=== PATIENT | male | born 1935 | race Caucasian/White ===

== ENCOUNTER → 2017-01-13 | Outpatient (REF) ==
[2017-01-13 09:49] LABS: BASO # 0.1 (0.0-0.2); BASO % 0.9 % (0.0-2.0); EOS # 0.3 (0.0-0.7); EOS % 3.8 % (0-4.0); GRAN % 61.6 % (42.2-75.2); HEMATOCRIT 37.1 % (42.0-52.0); HEMOGLOBIN 12.3 g/dl (13.5-18.0); LYMPH # 1.7 (1.2-3.4); LYMPH % 25.9 % (20.0-51.0); MEAN CELL VOLUME 91 fl (80.0-100.0); MEAN CORPUSCULAR HEMOGLOBIN 30 pg (27.0-31.0); MEAN CORPUSCULAR HGB CONC 33 g/dl (33.0-37.0); MEAN PLATELET VOLUME 12.5 fl (7.4-10.4); MONO # 0.5 (0.1-0.6); MONO % 7.5 % (1.7-9.3); PLATELET COUNT 172 K/mm3 (130-400); RED BLOOD COUNT 4.07 M/mm3 (4.20-5.60); REDCELL DISTRIBUTION WIDTH-CV 13.1 % (11.5-14.5); WHITE BLOOD COUNT 6.5 K/mm3 (4.8-10.8)
[2017-01-13 10:23] LABS: ADJUSTED CALCIUM 9.7 mg/dL (8.4-10.2); ALBUMIN 3.9 gm/dL (3.5-5.0); BILIRUBIN,TOTAL 0.6 mg/dL (0.0-1.0); CALCIUM 9.6 mg/dL (8.4-10.2); CREATININE, serum 0.85 mg/dL (0.66-1.25); POTASSIUM 4.5 mmol/L (3.4-5.0); TOTAL PROTEIN 6.6 gm/dL (6.4-8.2)
== END ==
LOC: ZLAB.STJ 09:21
PROVIDERS: Internal Medicine
DX: Z02.89 Encounter for other administrative examinations (principal)

== ENCOUNTER 2018-12-18 16:43 | Inpatient (IN) | payer MEDICARE, BC ==
[~2018-12-18] VITALS: Ht 152.4 cm; Wt 42.5 kg
[2018-12-18 17:23] LABS: BASO # 0.1 (0.0-0.2); BASO % 0.7 % (0.0-2.0); EOS # 0.1 (0.0-0.7); EOS % 1.4 % (0-4.0); GRAN # 6.9 (1.4-6.5); GRAN % 79.7 % (42.2-75.2); HEMATOCRIT 38.3 % (37.0-47.0); HEMOGLOBIN 12.8 g/dl (12.5-16.0); LYMPH # 0.9 (1.2-3.4); MEAN CELL VOLUME 87 fl (80.0-100.0); MEAN CORPUSCULAR HEMOGLOBIN 29 pg (27.0-31.0); MEAN CORPUSCULAR HGB CONC 33 g/dl (33.0-37.0); MEAN PLATELET VOLUME 11.9 fl (7.4-10.4); MONO # 0.7 (0.1-0.6); MONO % 7.9 % (1.7-9.3); PLATELET COUNT 259 K/mm3 (130-400); RED BLOOD COUNT 4.42 M/mm3 (4.10-5.30); REDCELL DISTRIBUTION WIDTH-CV 12.7 % (11.5-14.5)
[2018-12-18 17:24] LABS: COLLECTION METHOD CATHETER
[2018-12-18 17:30] LABS: MUCOUS Present /lpf; PH 5 (5-8); SQUAMOUS EPITHELIAL 0-2 /hpf; URINE APPEARANCE Hazy; URINE BACTERIA None Seen /hpf; URINE BILIRUBIN Negative (NEGATIVE); URINE BLOOD 1+ (NEGATIVE); URINE COLOR Yellow; URINE GLUCOSE Negative (NEGATIVE); URINE KETONE 2+ (NEGATIVE); URINE LEUKOCYTE ESTERASE Negative (NEGATIVE); URINE NITRATE Negative (NEGATIVE); URINE PROTEIN(semi-quant) Negative (NEGATIVE); URINE RBC 0-2 /hpf; URINE UROBILINOGEN Negative (NEGATIVE)
[2018-12-18 17:44] LABS: ALANINE AMINOTRANSFERASE 8 U/L (9-52); ALBUMIN 4.2 gm/dL (3.5-5.0); ALKALINE PHOSPHATASE 90 U/L (50-136); ANION GAP 13 mmol/L (7-16); AST,SGOT 26 U/L (15-37); BILIRUBIN,TOTAL 0.7 mg/dL (0.0-1.0); BLOOD UREA NITROGEN 14 mg/dL (7-17); C-REACTIVE PROTEIN 2.4 mg/dL (0.0-0.9); CALCIUM 9.7 mg/dL (8.4-10.2); CARBON DIOXIDE 26 mmol/L (22-30); CHLORIDE 96 mmol/L (98-107); CREATINE KINASE 33 U/L (30-135); CREATININE, serum 0.76 (0.52-1.25); GLUCOSE 84 mg/dL (74-106); LIPASE 104 U/L (23-300); POTASSIUM 3.9 mmol/L (3.4-5.0); SODIUM 135 mmol/L (137-145)
[2018-12-18 17:49] LABS: ERYTHROCYTE SEDIMENTATION RATE 46 mm/hr (0-30)
[2018-12-18 18:14] LABS: TROPONIN-I < 0.012 ng/mL (0.000-0.035)
[2018-12-18] MEDS ORDERED: METHAVER 109 M1 EACH PO (20:31)
[2018-12-18] MEDS ORDERED: ARICEPT10 MG PO (20:32)
[2018-12-18] MEDS ORDERED: LEXAPRO20 MG PO (20:32)
[2018-12-18] MEDS ORDERED: CALCIUM 600MG+D1 TAB PO (20:32)
[2018-12-18] MEDS ORDERED: COZAAR 25MG25 MG/TAB PO (20:33)
[2018-12-18] MEDS ORDERED: GLUCOSAMIN 500 (20:33)
[2018-12-18] MEDS ORDERED: TOPROL XL 50MG50 MG PO (20:34)
[2018-12-18] MEDS ORDERED: MACROBID 1100 MG/CAP PO (20:36)
[2018-12-18] MEDS ORDERED: EVISTA 60MG60 MG/TAB PO (20:37)
[2018-12-18 20:56] VITALS: BP 165/82; PULSE 74; TEMP 99.4
--- NOTE | 2018-12-18 21:30 | NUR ---
Admitted to medical floor from ER with DX; weakness, uterine mass, HX alzheimers, family is here- talking with Vandana BARRON - IV fluids of NS at 125cc/hr, incontinent of urine- changed. Very pleasant, oriented to person, place. Bed alarm on-
[2018-12-18] MEDS ORDERED: LOPRESSOR 550 MG/TAB PO (22:42)
[2018-12-18] MEDS ORDERED: ANTIVERT 25MG25 MG PO (22:43)
[2018-12-19] VITALS (8 sets, daily range): BP systolic 133–179; BP diastolic 54–82; PULSE 79–98; TEMP 97.4–98.9
--- NOTE | 2018-12-19 03:20 | NUR ---
Awake- anxious, states she feels like she is dying- could not explain why-- VSS, states she is having left leg pain, Vandana BARRON did see pt- will give her some dilaudid for pain control.
[2018-12-19 06:14] LABS: BASO # 0.1 (0.0-0.2); BASO % 0.8 % (0.0-2.0); EOS # 0.1 (0.0-0.7); EOS % 0.8 % (0-4.0); GRAN # 7.6 (1.4-6.5); GRAN % 83.2 % (42.2-75.2); HEMATOCRIT 34.6 % (37.0-47.0); HEMOGLOBIN 11.4 g/dl (12.5-16.0); LYMPH # 0.8 (1.2-3.4); LYMPH % 8.5 % (20.0-51.0); MEAN CELL VOLUME 89 fl (80.0-100.0); MEAN CORPUSCULAR HEMOGLOBIN 29 pg (27.0-31.0); MEAN CORPUSCULAR HGB CONC 33 g/dl (33.0-37.0); MEAN PLATELET VOLUME 11.9 fl (7.4-10.4); MONO # 0.6 (0.1-0.6); MONO % 6.5 % (1.7-9.3); PLATELET COUNT 237 K/mm3 (130-400); RED BLOOD COUNT 3.91 M/mm3 (4.10-5.30); REDCELL DISTRIBUTION WIDTH-CV 12.8 % (11.5-14.5)
[2018-12-19 06:24] LABS: CREATININE, serum 0.74 (0.52-1.25); POTASSIUM 3.9 mmol/L (3.4-5.0)
--- NOTE | 2018-12-19 07:00 | NUR ---
Did sleep well after Dilaudid given- states fells better this morning.
--- NOTE | 2018-12-19 11:00 | NUR ---
PT HAD C/O N/V THIS AM. RECIEVED PRN ZOFRAN, PT STATED SHE DID VOMIT MEDS UP FROM EARLIER. PT HAS WENT DOWN TO ABD MRI THIS MORNING. C/O BAD HEADACHE, UNABLE TO TAKE PO MEDS AT THIS TIME, ADMINISTERED IV DILADID X2 WITHOUT RELIEF.
--- NOTE | 2018-12-19 13:30 | NUR ---
ADMINISTERED PHENAGREN AND MORPHINE. IV FLUIDS CHANGED TO D51/2NS AT THIS TIME. IV APPREZOLINE ADMINSTERED.
--- NOTE | 2018-12-19 16:00 | NUR ---
PT VOICES THAT SHE IS FEELING SO MUCH BETTER THEN SHE FELT EALIER THAT PHENAGREN AND MORPHINE DID THE TRICK. PT ATTEMPTING SOME JELLO. INFORMED HER THAT IF SHE BECAME NAUSEATED AFTERWARDS TO LET ME KNOW. NO COMPLAINTS AFTERWARDS. PT SON AT BEDSIDE, WAITING IN ROOM IN CASE THE OBGYN RETURNS THIS EVENING.
--- NOTE | 2018-12-19 16:16 | NUR ---
SW met with patient and son, Navid, to discuss discharge planning. Patient lives at home with Navid and his . Patient's PCP is Mimi Van APRN [facility] Te and son deny difficulty obtaining medications. Patient normally uses a cane for ambulation but has recently needed her four wheeled walker. Patient will be evaluated by PT and OT. Patient reports she has recently started getting outpatient PT at [facility] in [place]. Patient does not have any home health services. Te's DPOA-HC is Navid and her daughter. SW requested a copy for the chart. SW will continue to follow and assist with discharge needs.
--- NOTE | 2018-12-19 18:30 | NUR ---
PT SON LEFT FACILITY AT THIS TIME. LEFT THIS NURSE HIS PHONE NUMBER TO PASS ON IN CASE ANYTHING HAPPENS OR IF OBGYN COMES IN TO LET HIM KNOW. SON STATED HE MIGHT BE IN LATER THIS EVENING WITH HIS SISTER WHO IS FLYING IN. STATEDT THAT HIS MOTHER IS SLEEPING LIKE A BABY AT THIS TIME. PT DID TOLERATED JELLO THIS AFTERNOON WITH N/V.
--- NOTE | 2018-12-19 22:00 | NUR ---
Resting in bed. Assessment complete. Lungs clear. Heart sounds normal. Bowels active x4. Pulses strong throughout. No edema noted. Incontinent of urine. Cares provided. Denies pain at this time. Call light in reach. Bed alarm in place. Patient alert and orientated at this time.
--- NOTE | 2018-12-19 23:46 | NUR ---
Rating headache/leg pain 5/10 with nausea. Provided with PRN zofran and morphine at this time. Daughter at bedside. Denies other needs. Call light in reach.
[2018-12-20 03:54] VITALS: BP 123/51; PULSE 107; TEMP 98.7
--- NOTE | 2018-12-20 04:27 | NUR ---
Rating pain 8/10 with nausea. Provided with PRN phenergan and morphine. Will monitor.
[2018-12-20 06:17] LABS: BASO % 0.4 % (0.0-2.0); EOS # 0.1 (0.0-0.7); EOS % 0.8 % (0-4.0); GRAN # 9.4 (1.4-6.5); GRAN % 84.8 % (42.2-75.2); HEMOGLOBIN 11.4 g/dl (12.5-16.0); LYMPH # 0.8 (1.2-3.4); LYMPH % 6.9 % (20.0-51.0); MEAN CELL VOLUME 88 fl (80.0-100.0); MEAN CORPUSCULAR HEMOGLOBIN 29 pg (27.0-31.0); MEAN CORPUSCULAR HGB CONC 33 g/dl (33.0-37.0); MEAN PLATELET VOLUME 11.9 fl (7.4-10.4); MONO # 0.8 (0.1-0.6); MONO % 6.8 % (1.7-9.3); PLATELET COUNT 267 K/mm3 (130-400); RED BLOOD COUNT 3.89 M/mm3 (4.10-5.30); REDCELL DISTRIBUTION WIDTH-CV 13.2 % (11.5-14.5)
[2018-12-20 06:26] LABS: HEMATOCRIT 34.3 % (37.0-47.0)
[2018-12-20 06:32] LABS: CALCIUM 8.8 mg/dL (8.4-10.2); CREATININE, serum 0.72 (0.52-1.25); MAGNESIUM 1.7 mg/dL (1.6-2.3); PHOSPHOROUS 2.8 mg/dL (2.5-4.5); POTASSIUM 3.3 mmol/L (3.4-5.0)
--- NOTE | 2018-12-20 07:04 | NUR ---
Report given to ERICKA Ordoñez
--- NOTE | 2018-12-20 07:04 | NUR ---
Patient had nausea with back pain throughout night. Provided with zofran, phenergan, and morphine PRN as ordered. Daughter remained at bedside throughout night. Otherwise uneventful. Resting in bed this AM.
[2018-12-20 09:00] VITALS: BP 128/56; PULSE 99; TEMP 98.5
[2018-12-20 12:31] VITALS: BP 156/65; PULSE 90; TEMP 98.3
--- NOTE | 2018-12-20 13:41 | NUR ---
SW attended clinical rounds. Patient's son (Navid), daughter in law and daughter (Otilia) were present. Patient was seen by PT and OT for rehab recommendations. Post Acute Rehab at a SNF has been recommneded. Patient and family are agreeable. SW provided medicare.gov resource list. Patient and family would like to review options and follow up with SW after they return from lunch.
--- NOTE | 2018-12-20 15:17 | NUR ---
SW met with patient's son, Navid, to discuss SNF chices. Navid and patient's daughter, Otilia, chose 1. [facility] and 2. [facility]. Patient is also agreeable to these choices. Patient's son signed choice form. Navid reports that their goal is to see patient progress to the point where she can return home. SW contacted both facilities and faxed referral.
[2018-12-20 16:13] VITALS: BP 141/60; PULSE 91; TEMP 98.3
--- NOTE | 2018-12-20 19:53 | NUR ---
PT HAS BEEN NAUSEATED AND HAD OFF AND ON EMSIS THIS SHIFT. ZOFRAN AND PHENAGREN GIVEN ABLE TO WITHOUT MUCH RELIEF, PROVIDER WAS NOTIFIED. PROVIDER ORDERED A SCOPOMINE PATCH TO TRY TO HELP WITH THE NAUSEA, PATCHED WAS PLACED THIS AFTERNOON. FAMILY HAS REMAINED AT BEDSIDE MOST OF THE DAY. PT ATTEMPTED TO EAT SOME FOOD THIS SHIFT, UNABLE TO TOLERATE MUCH FOOD ALTHOUGH. PAIN MED GIVEN NEEDED, PT STATES THE PAIN MEDICATION DOES HELP.
[2018-12-20 20:27] VITALS: BP 178/72; PULSE 112; TEMP 99.2
--- NOTE | 2018-12-20 20:30 | NUR ---
Intial shift assessment done- nauseated, had small emesis, will give Zofran at this time- family concerned about nausea, talked about how we are alternating Phenergan and Zofran for nausea-- states understanding- pt denies pain, was incontinent of urine- changed at this time
[2018-12-21] VITALS (14 sets, daily range): BP systolic 120–172; BP diastolic 53–132; PULSE 88–118; TEMP 98–98.8
--- NOTE | 2018-12-21 05:42 | NUR ---
Has been sleeping well for the past 5-6 hours- did reposition, pulled up in bed, was incontinent of urine x3 during the this shift- denies pain, denies nausea at this time
[2018-12-21 06:11] LABS: BASO % 0.2 % (0.0-2.0); EOS % 0.1 % (0-4.0); GRAN # 12.3 (1.4-6.5); GRAN % 89.3 % (42.2-75.2); LYMPH # 0.8 (1.2-3.4); LYMPH % 5.7 % (20.0-51.0); MEAN CELL VOLUME 88 fl (80.0-100.0); MEAN CORPUSCULAR HEMOGLOBIN 30 pg (27.0-31.0); MEAN CORPUSCULAR HGB CONC 34 g/dl (33.0-37.0); MEAN PLATELET VOLUME 11.8 fl (7.4-10.4); MONO # 0.6 (0.1-0.6); MONO % 4.3 % (1.7-9.3); PLATELET COUNT 264 K/mm3 (130-400); RED BLOOD COUNT 3.39 M/mm3 (4.10-5.30); REDCELL DISTRIBUTION WIDTH-CV 13.2 % (11.5-14.5)
[2018-12-21 06:25] LABS: CREATININE, serum 0.7 (0.52-1.25); MAGNESIUM 1.7 mg/dL (1.6-2.3); POTASSIUM 3.7 mmol/L (3.4-5.0)
[2018-12-21 06:37] LABS: HEMATOCRIT 29.8 % (37.0-47.0)
--- NOTE | 2018-12-21 09:46 | NUR ---
Patient was accepted to [facility] for skilled stay.
--- NOTE | 2018-12-21 11:50 | NUR ---
SW attended clinical rounds. Patient was accepted to [facility] for skilled stay when she is stable for discharge. Patient and family met with Consuelo from [facility] this morning. Due to patients continued nausea, GI will consulted. BLAISE will continue to follow.
--- NOTE | 2018-12-21 13:00 | NUR ---
CONSENT FORM SIGNED BY SON,MEGAN. EGD CONSENT FORM ON PATIENT CHART.
--- NOTE | 2018-12-21 14:20 | NUR ---
PATIENT TAKEN TO ENDOSCOPY VIA BED. WILL WAIT FOR PATIENT ARRIVAL BACK TO ROOM 313.
--- NOTE | 2018-12-21 16:00 | NUR ---
PATIENT IS SEDATED FROM HER EGD THIS AFTERNOON. PATIENT POST-OP VSS. PATIENT AROUSES TO NAME AND TOUCH BRIEFLY, AND FALLS BACK ASLEEP. REMAINDER OF NEURO CHECK NOT COMPLETED. SON PRESENT AT THE BEDSIDE. PATIENT STABLE. NO NEEDS AT THIS TIME.
--- NOTE | 2018-12-21 19:00 | NUR ---
PATIENT POST-OP VITALS STABLE AND COMPLETE. FAMILY PRESENT AT THE BEDSIDE. PATIENT ASLEEP AND AROUSES TO STIMULI. NO NEEDS AT THIS TIME.
--- NOTE | 2018-12-21 19:30 | NUR ---
REPORT GIVEN TO ERICKA CARRERA.
--- NOTE | 2018-12-21 19:44 | NUR ---
UPON ENTRY INTO ROOM PATIENT IS RESTING IN BED WITH FAMILY PRESENT AT THE BEDSIDE. PATIENT IS A&O TO NAME, , PLACE AND SITUATION. PATIENT NOT ORIENTED TO THE YEAR. TACHYCARDIA NOTED, OTHERWISE VSS. GENERALIZED WEAKNESS OBSERVED. BOWEL SOUNDS ACTIVE ALL FOUR QUADRANTS. PATIENT STATES THAT SHE FEELS NAUSEATED WITHOUT ANY REPORT OF EMESIS. POSITIVE PEDAL PULSES EQUAL BILATERALLY. LEFT AC TO INT. CALL LIGHT WITHIN REACH. PATIENT DENIES ANY NEEDS AT THIS TIME.
--- NOTE | 2018-12-21 21:53 | NUR ---
Report received from ERICKA Avila. Patient resting in bed. Family at bedside. Denies any pain at this time. Very drowsy from the anesthesia from her procedure today. Lungs CTA. Pulses strong. Incontinent, brief and chux changed. IV patent, flushed. Denies any other needs at this time. Call light within reach.
[2018-12-22] VITALS (7 sets, daily range): BP systolic 116–138; BP diastolic 46–70; PULSE 79–105; TEMP 97.9–98.8
--- NOTE | 2018-12-22 05:25 | NUR ---
Patient had uneventful night. Stated that her leg hurt, ice pack provided and upon reassessment, pain had improved. Patient brief changed three times. New chux changed. Barrier cream was applied on reddened aread. Was able to drink a few sips of sprite. Attempted a popsicle, but was too soon. Denied any further needs at this time. Call light within reach.
--- NOTE | 2018-12-22 06:53 | NUR ---
Report given to ERICKA Vick.
[2018-12-22 07:13] LABS: BASO # 0.1 (0.0-0.2); BASO % 0.6 % (0.0-2.0); EOS # 0.1 (0.0-0.7); EOS % 1.1 % (0-4.0); GRAN % 75.5 % (42.2-75.2); LYMPH # 1.1 (1.2-3.4); LYMPH % 13.9 % (20.0-51.0); MEAN CELL VOLUME 89 fl (80.0-100.0); MEAN CORPUSCULAR HGB CONC 33 g/dl (33.0-37.0); MEAN PLATELET VOLUME 12.1 fl (7.4-10.4); MONO # 0.7 (0.1-0.6); MONO % 8.6 % (1.7-9.3); PLATELET COUNT 254 K/mm3 (130-400); RED BLOOD COUNT 3.24 M/mm3 (4.10-5.30); REDCELL DISTRIBUTION WIDTH-CV 13.3 % (11.5-14.5)
[2018-12-22 07:17] LABS: HEMATOCRIT 28.8 % (37.0-47.0); HEMOGLOBIN 9.5 g/dl (12.5-16.0); MEAN CORPUSCULAR HEMOGLOBIN 29 pg (27.0-31.0)
[2018-12-22 07:28] LABS: CALCIUM 8.9 mg/dL (8.4-10.2); CREATININE, serum 0.73 (0.52-1.25); MAGNESIUM 1.7 mg/dL (1.6-2.3); POTASSIUM 3.1 mmol/L (3.4-5.0)
--- NOTE | 2018-12-22 09:58 | NUR ---
Pt awake and alert upon entry, family in room with Pt, C/O pain in BLE, warm pack applied for relief. Shift assessments complete, left Pt call light in reach, bed in lowest position, bed alarm on.
--- NOTE | 2018-12-22 18:20 | NUR ---
Pt resting in bed during the day, family was in room with Pt until late this afternoon, has C/O pain / discomfort in her BLE relieved with warm packs, VS have been stable
--- NOTE | 2018-12-22 22:21 | NUR ---
Report received from ERICKA Vick. Patient resting in bed. Assessment completed. Denies any pain at this time. Pulses strong. Lungs CTA. Alert and oriented. Denies any further needs at this time. Call light within reach.
[2018-12-23 04:13] VITALS: BP 146/62; BP 149/57; PULSE 63; PULSE 83; TEMP 97.9; TEMP 98.4
--- NOTE | 2018-12-23 05:24 | NUR ---
Patient had uneventful night. Resting in bed. Denied pain. Slept throughout the night. Brief and chux changed once this shift. Call light within reach.
--- NOTE | 2018-12-23 06:53 | NUR ---
Report given to ERICKA Vick
[2018-12-23 06:57] VITALS: BP 135/58; PULSE 90; TEMP 97.5
[2018-12-23 07:01] LABS: CALCIUM 8.5 mg/dL (8.4-10.2); CREATININE, serum 0.75 (0.52-1.25); POTASSIUM 3.2 mmol/L (3.4-5.0)
--- NOTE | 2018-12-23 07:51 | NUR ---
Received report from ERICKA Browne.
[2018-12-23] MEDS ORDERED: MIRTAZAPINE7.5 MG PO (09:12)
[2018-12-23] MEDS ORDERED: PROTONIX 40MG T40 MG PO (09:13)
[2018-12-23] MEDS ORDERED: ZOFRAN 4MG T4 MG/TAB PO (09:14)
[2018-12-23] MEDS ORDERED: TYLENOL 325MG325 MG PO (09:15)
[2018-12-23] MEDS ORDERED: ULTRAM 50MG TAB50 MG PO (09:15)
--- NOTE | 2018-12-23 10:01 | NUR ---
Pt in room resting, sitting up in the recliner, some C/O pain in her lower extremities, medications given for relief, shift assessments complete, left Pt call light in reach.
[2018-12-23 11:18] VITALS: BP 133/53; PULSE 82; TEMP 98.1
--- NOTE | 2018-12-23 11:56 | NUR ---
facilities maintenance worker arranged patient's transfer to [facility] for skilled care today. [facility] will transport at 12:30. Worker notified patient's son, Navid of discharge.
--- NOTE | 2018-12-23 12:13 | NUR ---
steam table worker met with daughter and completed IM form. Worker faxed orders to [facility].
--- NOTE | 2018-12-23 12:30 | NUR ---
Transferred to SNF, left via facility's vehicle.
== END 2018-12-23 12:30 | DRG 383 ==
LOC: COL.ER 16:43 → EDSEX 16:44 → MEDICAL 18:40
PROVIDERS: Emergency Medicine; Internal Medicine Gastroenterology; Nurse Practitioner Family; ADMIT Hospitalist
PROC: 0DB68ZX Excision of Stomach, Via Natural or Artificial Opening Endoscopic, Diagnostic (ICD-10-PCS; principal; 2018-12-21 14:00)
DX: K25.3 Acute gastric ulcer without hemorrhage or perforation (principal); E43 Unspecified severe protein-calorie malnutrition; Z68.1 Body mass index [BMI] 19.9 or less, adult; D25.9 Leiomyoma of uterus, unspecified; F03.90 Unspecified dementia, unspecified severity, without behavioral disturbance, psychotic disturbance, mood disturbance, and anxiety; M19.90 Unspecified osteoarthritis, unspecified site; M81.0 Age-related osteoporosis without current pathological fracture; I10 Essential (primary) hypertension; G89.29 Other chronic pain; Z66 Do not resuscitate; F32.9 Major depressive disorder, single episode, unspecified; F41.9 Anxiety disorder, unspecified; E87.6 Hypokalemia; E16.2 Hypoglycemia, unspecified; T39.395A Adverse effect of other nonsteroidal anti-inflammatory drugs [NSAID], initial encounter; Z88.2 Allergy status to sulfonamides; Z74.01 Bed confinement status; Z98.41 Cataract extraction status, right eye; D72.829 Elevated white blood cell count, unspecified
CPT/HCPCS: 99222-AI; 99232-AI; 99233-AI; 99239; C9113; J0360; J1170; J2250; J2270; J2405; J2550; J3010; J3480; J7030; J7042